=== PATIENT | female | born 1965 | race Two or more races ===

== ENCOUNTER 2023-10-31 13:58 | Emergency (ER) | payer OTHER, SELFPAY ==
[2023-10-31 14:06] VITALS: BP 124/80; PULSE 91; RESP 16; TEMP 38.4; O2SAT 97
--- NOTE | 2023-10-31 14:09 | XR_ITS ---
WS: [id number] Exam: XR chest 1V portable [id number] Date/Time of Exam: 10/31/2023 2:29 PM Reason For Exam: fever No priors. Findings: The lungs are clear and fully expanded. Costophrenic angles are sharp. No infiltrates. Bronchovascula r relief appears normal. Cardiac silhouette is unremarkable. Bony elements are intact. IMPRESSION: Unremarkable chest radiograph.
[2023-10-31 15:18] LABS: Basophils % 0.7 %; Eosinophils # 0.1 10^3/uL (0.0-0.8); Eosinophils % 2.2 %; Hematocrit 42.7 % (36-47); Lymphocytes % 17.4 %; Mean Corpuscular HGB Conc 33.3 g/dL (30-55); Mean Corpuscular Hemoglobin 29.3 pg (27-33); Monocytes # 0.4 10^3/uL (0.2-0.9); Monocytes % 7.3 %; Neutrophils # 4.28 10^3/uL (1.8-7.7); Neutrophils % 72.2 %; Nucleated Red Blood Cells % 0 %; Platelet Count 179 10^3/cmm (157-399); Red Blood Count 4.85 10^6/uL (3.85-5.65); Red Cell Distribution Width 12.2 % (12.1-15.1); White Blood Count 5.92 10^3/uL (3.29-11.43)
--- NOTE | 2023-10-31 15:19 | ED_ITS ---
HPI - URI/Sore Throat 2 General: Chief Complaint: Upper Respiratory Infection Stated Complaint: cough, fever, weakness, tick bites Time Seen by Provider: 10/31/23 15:04 Source: patient Mode of arrival: ambulatory History of Present Illness: 58-year-old female presents emergency ro om with complaints of cough fever shortness of breath congestion for the last month. She has had several episodes of pneumonia in the past she also reports multiple tick bites. Temp on arrival today is 101.1. Has had a cough and several tick bites recently. She had localized inflammation of the tick bite But no systemic rash. Denies any vomiting or diarrhea. MD elicited complaint: fever and cough Onset (ago): minute(s) Exacerbating factors: nothing Relieving factors: nothing Associated symptoms: Deny abdominal pain, change in voice, chills, chest pain, congestion, cough, diarrhea, epistaxis, ear or mastoid pain, fever(s), headache(s), myalgias, nasal congestion, nausea, rash, rhinorrhea, short of breath, sinus pain, stiffness, sore throat or vomiting Treatments prior to arrival: none Review of Systems 2 Const: Denies: fever(s) or chills ENMT: Denies: ear or mastoid pain, nasal congestion, epistaxis or sinus pain Card: Denies: chest pain Resp: Denies: dyspnea GI: Denies: abdominal pain, nausea, vomiting or diarrhea : Denies: dysuria, urinary frequency or urinary urgency Musc: Denies: neck pain or back pain Skin/Breast: Denies: rash Neuro: Denies: headache(s) Physical Exam 2 Const: GENERAL APPEARANCE: cooperative and comfortable O RIENTATION/CONSCIOUSNESS: Yes awake, Yes oriented to person, Yes oriented to place and Yes oriented to time HENMT: COMMON NORMALS: normocephalic, atraumatic and hearing grossly normal bilaterally HEAD & SCALP: normocephalic and atraumatic Resp: COMMON NORMALS: normal respiratory effort, No retractions, No use of accessory muscles and clear to auscultation bilaterally AUSCULTATION: clear to auscultation bilaterally Cardio: COMMON NORMALS: regular rate, regular rhythm and No murmurs present (Cardio) RATE: regular rate RHYTHM: regular rhythm GI: COMMON NORMALS: Soft to palpation and No hepatosplenomegaly present A USCULTATION: Yes normoactive bowel sounds PALPATION: Yes Soft to palpation, No Tenderness to palpation present (GI), No Guarding due to palpation present (GI) and Yes No hepatosplenomegaly present Extremity: COMMON NORMALS: normal to inspection, capillary refill normal, no clubbing, cyanosis or edema, no calf tenderness and no pedal edema Neuro: SENSORIUM/ORIENTATION: Yes oriented to person, Yes oriented to place and Yes oriented to time Skin: NARRATIVE SKIN EXAM: Several tick bites with localized erythema to the bite site no rash or inflammation there on the back of the buttocks and the abdominal wall Course 2 Vital Signs: Vital signs: Vital Signs Temperature 101.1 F H 10/31/23 14:06 Pulse Rate 98 10/31/23 17:48 Respiratory Rate 18 10/31/23 17:48 Blood Pressure 120/71 10/31/23 17:09 Pulse Oximetry 97 10/31/23 17:48 Oxygen Delivery Me thod Room Air 10/31/23 17:09 MDM - URI/Sore Throat Medical Decision Making Influenza difficult to place time of onset of symptoms not a candidate for antivirals supportive cares follow-up as needed Medical Records I reviewed the patient's medical records. Lab Data I reviewed the patient's lab results. 10/31/23 15:06 10/31/23 15:06 Laboratory Results WBC 5.92 10^3/uL (3.29-11.43) 10/31/23 15:06 RBC 4.85 10^6/uL (3.85-5.65) 10/31/23 15:06 Hgb 14.20 g/dL (11.27-16.99) 10/31/23 15:06 Hct 42.7 % (36-47) 10/31/23 15:06 MCV 88.0 fl (85-98) 10/31/23 15:06 MCH 29.3 pg (27-33) 10/31/23 15:06 MCHC 33.3 g/dL (30-55) 10/31/23 15:06 RDW 12.2 % (12.1-15.1) 10/31/23 15:06 Plt Count 179 10^3/cmm (157-399) 10/31/23 15:06 MPV 11.0 fL (7.4-10.4) H 10/31/23 15:06 Neut % (Auto) 72.2 % 10/31/23 15:06 Lymph % (Auto) 17.4 % 10/31/23 15:06 [place] % (Auto) 7.3 % 10/31/23 15:06 Eos % (Auto) 2.2 % 10/31/23 15:06 Baso % (Auto) 0.7 % 10/31/23 15:06 Neut # (Auto) 4.28 10^3/uL (1.8-7.7) 10/31/23 15:06 Lymph # (Auto) 1.0 10^3/uL (0.8-4.8) 10/31/23 15:06 [place] # (Auto) 0.4 10^3/uL (0.2-0.9) 10/31/23 15:06 Eos # (Auto) 0.1 10^3/uL (0.0-0.8) 10/31/23 15:06 Baso # (Auto) 0.0 10^3/uL (0.0-0.1) 10/31/23 15:06 Nucleated RBC % (auto) 0 % 10/31/23 15:06 Nucleated RBCs # 0.0 /100WBC 10/31/23 15:06 Sodium 139 mmol/L (136-145) 10/31/23 15:06 Potassium 3.8 mmol/L (3.5-5.1) 10/31/23 15:06 Chloride 104 mmol/L (98-107) 10/31/23 15:06 Carbon Dioxide 26 mmol/L (22-29) 10/31/23 15:06 Anion Gap 12.8 (5-19) 10/31/23 15:06 BUN 19 mg/dL (6-20) 10/31/23 15:06 Creatinine 0.7 mg/dL (0.5-0.9) 10/31/23 15:06 GFR Calculation 85.9 mL/min (90-130) L 10/31/23 15:06 Glucose 127 mg/dL (65-115) H 10/31/23 15:06 Calculated Osmolality 292 mOsm/kg (285-295) 10/31/23 15:06 Lactic Acid 1.2 mmol/L (0.5-2.2) 10/31/23 15:06 Calcium 8.8 mg/dL (8.5-10.5) 10/31/23 15:06 Total Bilirubin 0.4 mg/dL (0.15-1.2) 10/31/23 15:06 Direct Bilirubin 0.20 mg/dL (0.00-0.30) 10/31/23 15:06 AST 19 U/L (0-32) 10/31/23 15:06 ALT 39 U/L (0-33) H 10/31/23 15:06 Alkaline Phosphatase 98 U/L (35-105) 10/31/23 15:06 Total Protein 7.1 g/dL (6.6-8.7) 10/31/23 15:06 Albumin 4.3 g/dL (3.5-5.2) 10/31/23 15:06 Globulin 2.8 g/dL (1.3-4.6) 10/31/23 15:06 Urine Color Yellow (Yellow) 10/31/23 15:22 Urine Appearance Clear (CLEAR) 10/31/23 15:22 Urine pH 6 (5-7) 10/31/23 15:22 Ur Specific [place] 1.025 (1.005-1.030) 10/31/23 15:22 Urine Protein Neg (Negative) 10/31/23 15:22 Urine Glucose (UA) Norm (Normal) 10/31/23 15:22 Urine Ketones Negative (Negative) 10/31/23 15:22 Urine Blood Neg (Negative) 10/31/23 15:22 Urine Nitrate Negative (Negative) 10/31/23 15:22 Urine Bilirubin Neg (Negative) 10/31/23 15:22 Urine Urobilinogen Norm mg/dL (Negative) 10/31/23 15:22 Ur Leukocyte Esterase Negative (Negative) 10/31/23 15:22 Influenza Type A Ag positive (Negative) H 10/31/23 15:50 Influenza Type B Ag negative (Negative) 10/31/23 15:50 All radiology interpretation(s) finalized by discharge Discharge Plan Discharge Patient Disposition: Home Clinical Impression: Influenza A Condition: Stable Prescriptions: New albuterol sulfate 90 mcg/actuation HFA aerosol inhaler 2 inh INHALATION Q4H PRN (Reason: shortness of breath or wheezing) Qty: 18 0RF Discharge Orders: Discharge ED (Routine); Ordered 10/31/23 Ordered By: Nagi Sosa Discharge Diet: Usual diet Discharge Activity: Increase activity as tolerated Patient Instructions: Influenza (ED), Opioid Safety, Pain Management Activity Restrictions/Additional Instructions: Thank you for choosing [facility] for your healthcare needs today. Please realize this is an emergency room and that we are providing you with a medical screening exam and this may not be complete and all inclusive of all the testing and or work up that you may need to determine your ailment or severity of your illness. It is very important that you follow up as instructed or that you return to the Emergency Department should you have concerns or if your condition changes or worsens in any way. Recommend [id number] Tylenol or ibuprofen as needed for cough cold symptoms. You can use other [id number] medications for cough cold symptoms as needed. We also tested you for tickborne illness this panel is pending. Follow-up with your primary care to review the results of this testing as it takes several days to result. Coding Level of Care Code ED Insulation Board Coater Operator for José Luis Rodríguez
[2023-10-31 15:40] LABS: Add Urine Microscopic? NO; Charge for UA Resulting for Rev
[2023-10-31 15:42] LABS: Anion Gap 12.8 (5-19); Blood Urea Nitrogen 19 mg/dL (6-20); Calcium 8.8 mg/dL (8.5-10.5); Carbon Dioxide 26 mmol/L (22-29); Chloride 104 mmol/L (98-107); Glomerular Filtration Rate 85.9 mL/min (90-130); Glucose 127 mg/dL (65-115); Osmolality Calculated 292 mOsm/kg (285-295); Potassium 3.8 mmol/L (3.5-5.1); Sodium 139 mmol/L (136-145)
[2023-10-31 15:43] LABS: Lactic Sepsis W/Reflex 1.2 mmol/L (0.5-2.2)
[2023-10-31 15:49] LABS: Bilirubin Urine Neg (Negative); Blood Urine Neg (Negative); Glucose Urine UA Norm (Normal); Ketones Urine Negative (Negative); Leukocyte Esterase Urine Negative (Negative); Nitrate Urine Negative (Negative); Protein Urine Neg (Negative); Specific Gravity, Urine 1.025 (1.005-1.030); Urine Appearance Clear (CLEAR); Urine Color Yellow (Yellow); Urobilinogen Urine Norm (Negative); pH Urine 6 (5-7)
--- NOTE | 2023-10-31 15:54 | PC.NURSE ---
PT REFUSED COVID SWAB.
[2023-10-31 16:37] LABS: Influenza A by IFA positive (Negative); Influenza B by IFA negative (Negative)
[2023-10-31 16:42] LABS: Alanine Aminotransferase 39 U/L (0-33); Albumin Level 4.3 g/dL (3.5-5.2); Alkaline Phosphatase 98 U/L (35-105); Aspartate Amino Transferase 19 U/L (0-32); Globulin 2.8 g/dL (1.3-4.6); Total Bilirubin 0.4 mg/dL (0.15-1.2); Total Protein 7.1 g/dL (6.6-8.7)
[2023-10-31 17:09] VITALS: BP 120/71; PULSE 79; RESP 18; O2SAT 99
[2023-10-31 17:48] VITALS: PULSE 98; RESP 18; O2SAT 97
[2023-11-05 16:29] LABS: Lyme AB IGG, Blot NEGATIVE (NEGATIVE)
[2023-11-05 17:04] LABS: E. Chaffeensis AB IGG <1:64; E. Chaffeensis AB IGM <1:20
[2023-11-06 21:34] LABS: RMSF IGG NOT DETECTED; RMSF IGM NOT DETECTED
== END 2023-10-31 17:48 | disposition home or self-care (01) ==
PROVIDERS: Emergency Medicine; Emergency Provider Family Medicine
DX: J10.1 Influenza due to other identified influenza virus with other respiratory manifestations (principal)
CPT/HCPCS: 36415; 71045; 80048; 80076; 81003; 83605; 85025; 86618; 86666; 86757; 87040; 87804; 99284

== ENCOUNTER 2024-07-05 20:36 | Emergency (ER) | payer OTHER, SELFPAY ==
[2024-07-05 20:38] VITALS: PULSE 68; RESP 19; TEMP 36.6; O2SAT 99; BMI 36.6
--- NOTE | 2024-07-05 21:46 | W.ED.EYEPROB ---
HPI - Eye Problem General: Chief complaint: Eye Problems Stated complaint: eye injury dog scratched left eye Time Seen by Provider: 07/05/24 21:24 Source: patient Mode of arrival: ambulatory Limitations: no limitations History of Present Illness: Patient is a 58-year-old female presents to ED today along with family for evaluation of a dog scratch to her left eye. Patient states she was hanging upside down on an inversion table when the dog came up and pawed her and accidentally scratched her left eye. Tetanus is up-to-date but she adamantly refuses a tetanus stating no shots or I will get up and walk out of here . Patient states she is not having any visual changes or visual loss. Just pain to the eye. MD chief complaint: eye pain and eye injury Onset (ago): hour(s) Onset description: sudden Eye Symptoms: burning and pain Place: home Mechanism: other (dog scratch) Severity: moderate Associated symptoms: Reports no associated symptoms Treatments Prior to Arrival: none Related Data Previous Rx's Medication Instructions Recorded albuterol sulfate 90 mcg/actuation 2 inh inhalation Q4H PRN shortness 10/31/23 aerosol inhaler of breath or wheezing #18 grams erythromycin 5 mg/gram (0.5 %) eye 1 applic ophthalmic (eye) Q4H 7 07/05/24 ointment (3.5 gram tube) days #1 g Allergies Allergy/AdvReac Type Severity Reaction Status Date / Time acetaminophen [From Tylenol] Allergy Unknown Verified 07/05/24 20:50 iodine Allergy ALGY-Anaphy Verified 07/05/24 20:50 laxis Review of Systems Eyes: Reports: photophobia and eye discomfort; Denies: change in vision, blurry vision, blind spots, eye discharge, eye redness, floaters or seeing flashes Physical Exam Const: COMMON NORMALS: no acute distress, no limitations, healthy appearing, alert and well nourished Eye: COMMON NORMALS: Equal, round and reactive pupils present, EOMs intact bilaterally, conjunctivae normal and no scleral icterus GENERAL EYE: appearance normal, both eyes and all related structures and normal light reflex VISUAL ACUITY: Yes acuity normal ALIGNMENT: Yes alignment normal PERIORBITAL: periorbital findings normal EYELID: eyelids normal CONJUNCTIVA: Yes conjunctivae normal SCLERA: sclerae normal CORNEA: Yes fluorescein used (abrasion 3 o'clock on cornea) PUPIL: Yes Equal, round and reactive pupils present DIRECT OPHTHALMOSCOPY: Yes normal light reflex Neuro: SENSORIUM/ORIENTATION: Yes alert Course Vital Signs: Vital signs: Vital Signs Temperature 97.9 F 07/05/24 20:38 Pulse Rate 63 07/05/24 22:19 Respiratory Rate 18 07/05/24 22:19 Blood Pressure 104/75 07/05/24 22:19 Pulse Oximetry 98 07/05/24 22:19 Oxygen Delivery Me thod Room Air 07/05/24 20:38 MDM - Eye Problem Medical Decision Making Patient with a corneal abrasion. She will be treated with erythromycin ointment. Return precautions discussed. Otherwise she can follow-up with primary care if symptoms do not seem to be improving. Medical Records I reviewed the patient's medical records. No radiology studies performed this visit Discharge Plan Discharge Patient Disposition: Home Clinical Impression: Corneal abrasion Qualifiers: Encounter type: initial encounter Laterality: left Qualified Code(s): S05.02XA - Injury of conjunctiva and corneal abrasion without foreign body, left eye, initial encounter Condition: Stable Prescriptions: New erythromycin 5 mg/gram (0.5 %) ointment 1 applic ophthalmic (eye) Q4H 7 Days Qty: 1 0RF No Action albuterol sulfate 90 mcg/actuation HFA aerosol inhaler 2 inh INHALATION Q4H PRN (Reason: shortness of breath or wheezing) Qty: 18 0RF Discharge Orders: Discharge ED (Routine); Ordered 07/05/24 Ordered By: Shruthi Douglass Patient Instructions: Corneal Abrasion (DC) Activity Restrictions/Additional Instructions: As we discussed you need to use your erythromycin ointment every 4 hours as directed over the next week. You need to return to the emergency department for worsening pain, any visual changes or visual loss, discharge from your eye, or any other concerns you may have. You may follow-up with primary care next week if you feel symptoms are not improving. Coding Level of Care Code ED Mexican [employer] Maker Hand for José Luis Rodríguez
[2024-07-05] MEDS: fluorescein 1 mg Strip EYE-LEFT (22:03)
[2024-07-05] MEDS: erythromycin Op Oint 1 gm 1 APPLIC EYE-LEFT (22:16)
[2024-07-05 22:19] VITALS: BP 104/75; PULSE 63; RESP 18; O2SAT 98
== END 2024-07-05 22:20 | disposition home or self-care (01) ==
PROVIDERS: Emergency Provider Physician Assistant
DX: S05.02XA Injury of conjunctiva and corneal abrasion without foreign body, left eye, initial encounter (principal); W54.8XXA Other contact with dog, initial encounter
CPT/HCPCS: 99283